=== PATIENT | female | born 1995 | race Caucasian/White ===

== ENCOUNTER 2017-01-11 22:30 | Emergency (ER) | payer BC ==
[~2017-01-11] VITALS: Ht 170.2 cm; Wt 81.7 kg
[2017-01-11] MEDS ORDERED: IBUPROFEN 200200 M1 PO (22:40)
[2017-01-11] MEDS ORDERED: NAPROSYN500 MG PO (23:02)
[2017-01-11] MEDS ORDERED: TRAMADOL 50 MG50 MG PO (23:02)
[2017-01-11 23:41] VITALS: BP 124/75
== END 2017-01-11 23:44 | disposition home or self-care (01) ==
LOC: ER 22:30
DX: S93.491A Sprain of other ligament of right ankle, initial encounter (principal); W50.0XXA Accidental hit or strike by another person, initial encounter; Y93.66 Activity, soccer; Y92.89 Other specified places as the place of occurrence of the external cause; Y99.8 Other external cause status